=== PATIENT | male | born 1985 | race Caucasian/White ===

== ENCOUNTER 2016-09-11 00:14 | Emergency (ER) | payer SELFPAY ==
--- NOTE | 2016-09-11 05:23 | ED CLINICAL REPORT ---
Clinical Report - Physicians/Mid Levels [facility] [address] [place] [address] 09/11/2016 0:15 Patient: SUNSHINE MCLAUGHLIN Time Seen: 02:52 Sep 11 2016. Arrived- By private vehicle. Historian- patient. CPT: ER phys charges level 4 plus (#[id number]). EKG interpretation (#[id number]). HISTORY OF PRESENT ILLNESS Chief Complaint: HEADACHE, CHEST PAIN, COUGH and ARM PAIN. This started about [address]/MEDICAL INTERPRETER and is still present. At its maximum, severity described as moderate. When seen in the E.D., severity described as mild. Modifying factors- worsened by movement and cough. Relieved by rest. The patient has had fatigue. (Has had a cough for 2 weeks.). Similar symptoms previously: None. Recent medical care: Not recently seen/assessed. REVIEW OF SYSTEMS No fever, sinus drainage, nasal congestion, cough or difficulty breathing. No abdominal pain, nausea, vomiting, diarrhea or black stools. No bloody stools, chills, difficulty with urination, skin rash or back pain. No calf pain. The patient has had chest pain. Has had a lot of reflux for 2 weeks. PAST HISTORY Lumbar Strain. Cervical Radiculopathy. Sprain. Herniated Disk. Diarrhea. Asthma. Bronchospasm. Immunizations. Bronchitis. Additional Surgeries: no known surgeries. Medications: None. Allergies: No Known Drug Allergy. SOCIAL HISTORY Light tobacco smoker (cigarette)- less than 1/2 a pack per day. ADDITIONAL NOTES The nursing notes have been reviewed. PHYSICAL EXAM Vital Signs: 09/11/2016 01:36 BP: 121/62. HR: 71. RR: 16. O2 saturation: 98%. Temp: 97.8 F. Pain level now: 0/10. Appearance: Alert. No acute distress. Eyes: Eyes normal inspection. ENT: Pharynx normal. Neck: Normal inspection. CVS: Normal heart rate and rhythm. Heart sounds normal. Pulses normal. Respiratory: No respiratory distress. Breath sounds normal. (tender over sdoft tissue of the left pectoralis and insertion to the left shoulder. Tender with muscle testing.). Abdomen: No visible injury. Soft. Moderate tenderness in the epigastric area. No mass. Back: Normal inspection. No CVA tenderness. Skin: Skin warm. Normal skin color. Extremities: Extremities exhibit normal ROM. No calf tenderness. No lower extremity edema. Neuro: Oriented X 3. No motor deficit. No sensory deficit. Reflexes normal. LABS, X-RAYS, AND EKG EKG: Normal EKG. Chest X-ray: Normal Chest X-Ray. Laboratory Tests: CBC w Diff: (RIOS: 09/11/2016 03:15) ( [facility] 09/11/2016 03:35) Final results Test Result Flag Units (Reference) WHITE BLOOD COUNT 8.0 K/uL (4.5-11.5) RED BLOOD COUNT 4.65 M/uL (4.50-5.90) HEMOGLOBIN 14.0 gm/dL (13.5-17.5) HEMATOCRIT 40.7 L % (41.0-53.0) MEAN CELL VOLUME 88 fL (80-100) MEAN CORPUSCULAR HGB 30 pg (26-34) MEAN CORPUSCULAR HGB CONC 35 g/dL (31-37) RED CELL DISTRIBUTION WIDTH 12.6 % (11.6-14.8) PLATELET COUNT 215 K/uL (150-400) NEUTROPHIL % 47.0 L % (50-75) LYMPH % 41.4 H % (25-40) MONO % 6.3 % (3-14) EOSINOPHIL % 5.1 H % (0-4) BASOPHIL % 0.2 % (0-2) [id number]: (RIOS: 09/11/2016 03:15) ( [facility] 09/11/2016 03:39) Final results Test Result Flag Units (Reference) D-DIMER QUANTITATIVE < 0.27 L ug/mLFEU (0.27-0.52) The primary value of this quantitative assay relates toits negative predictive value (i.e. exclusion) of pulmonaryembolism/deep vein thrombosis/DIC.Elevated levels of d-dimer may also occur with:, age, cancer, inflammation, liver disease,post-op, infection, hematoma, coronary disease, peripheralarteriopathy, bleeding disorders and thrombolytic treatment.Results should be correlated with other clinical andradiological data.Testing Methodology: Latex Immunoassay CHEM 13 PANEL: (RIOS: 09/11/2016 03:15) ( MsgRcvd 09/11/2016 04:10) Final results Test Result Flag Units (Reference) CPK 143 U/L (24-260) TROPONIN I <0.05 L ng/mL (0.00-1.5) TROPONIN REFERENCE RANGE:<0.1 NEGATIVE0.1-1.5 INDETERMINANT>1.5 POSITIVE GLUCOSE 104 mg/dL (70-110) BUN 17 mg/dL (7-18) CREATININE 0.9 mg/dL (0.6-1.3) Estimated GFR >60 mL/min Estimated GFR- >60 mL/min Note: Persistent reduction over 3 months in eGFR<60 mL/min/1.73 m2 defines CKD. Patients with eGFR values>=60 mL/min/1.73 m2 may also have CKD if evidence ofpersistent proteinuria. Additional information may be foundat www.[email or web address].org. SODIUM 144 mmol/L (136-145) POTASSIUM 3.7 mmol/L (3.5-5.1) CHLORIDE 108 H mmol/L (98-107) CARBON DIOXIDE 25 mmol/L (21-32) CALCIUM 8.5 mg/dL (8.5-10.1) TOTAL PROTEIN 7.4 g/dL (6.4-8.2) ALBUMIN 3.8 g/dL (3.3-5.0) BILIRUBIN, TOTAL 0.2 mg/dL (0.0-1.0) ALKALINE PHOSPHATASE 55 U/L (46-116) AST (SGOT) 31 U/L (15-37) ALT (SGPT) 75.6 U/L (12-78) MAGNESIUM 2.0 mg/dL (1.8-2.4) . PROGRESS AND PROCEDURES Course of Care: White GI cocktail and is much better. Pt has a combination of reflux related pain and chest wall pain. Patient/family counseled. Disposition: Discharged. Condition: stable. CLINICAL IMPRESSION Gastroesophageal reflux disease with esophagitis. Chest wall pain .12 lead EKG performed. INSTRUCTIONS No strenuous activity. Warnings: Further evaluation is necessary. GENERAL WARNINGS: Return or contact your physician immediately if your condition worsens or changes unexpectedly, if not improving as expected, or if other problems arise. Prescription Medications: Hydrocodone/APAP 5mg/325mg: take 1 to 2 orally every 6 hours as needed for pain. Dispense fifteen (15). No refills. Soma 350 mg: Take 1 orally every 6 hours as needed for muscle spasm. Dispense twenty (20). No refills. Substitution is permissible. Carafate 1 gm tablets: take 1 orally four times daily (1 hour before meals and at bedtime). Dispense sixty (60). No refills. Substitution is permissible. Prilosec 40 mg capsules: take 1 capsule orally every day for 10 days. Dispense ten (10). No refill. Follow-up: Follow up with your doctor in one week. Call for an appointment. Understanding of the discharge instructions verbalized by patient and family. (Electronically signed by Abilio Adorno MD 09/18/2016 14:52)
--- NOTE | 2016-09-11 05:23 | ED NURSING NOTES ---
Clinical Report - Nurses [facility] [place] [address] 09/11/2016 0:15 Patient: SUNSHINE MCLAUGHLIN TRIAGE Triage time 01:36. Acuity: LEVEL 3. Chief Complaint: HEADACHE, CHEST PAIN, COUGH and ARM PAIN. --01:39 TonyaB, R.N. 01:36 09/11/16. BP: 121/62. HR: 71. RR: 16. O2 saturation: 98%. Temp: 97.8 F. Pain level now: 0. --01:39 TonyaB, R.N. Weight: 131.5 kg. Height/Length: 69 inches. BMI: 42.8. --01:38 TonyaB, R.N. Medications None. --01:37 TonyaB, R.N. Allergies No Known Drug Allergy. --01:37 TonyaB, R.N. History Arrived by private vehicle. Historian: patient. Accompanied by family. ( pt complains of left arm pain, chest pain and cough for three or four days). Onset. (4 days ago). 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 PAST MEDICAL HX: Immunizations: up-to-date. SOCIAL HX: Current every day light tobacco smoker. No alcohol use or drug use. No infectious disease exposure. SELF HARM ASSESSMENT: A self harm assessment was performed. The patient answered "no" to the question "Have you recently felt down, depressed, or hopeless?", "Have you noticed less interest or pleasure in doing things?", "Do you have thoughts of harming or killing yourself?", "Are you here because you tried to hurt yourself?", "Have you ever tried to hurt yourself before today?", "Have you recently had thoughts about harming or killing others?" and "Do you have any dangerous items in your possession?". FALL RISK ASSESSMENT: Fall risk assessment completed. No fall risk identified. NUTRITIONAL RISK ASSESSMENT: The nutritional risk assessment revealed no deficiencies. FUNCTIONAL ASSESSMENT: Functional assessment: no impairments noted. LEARNING NEEDS ASSESSMENT: The learning needs assessment revealed no barriers. ABUSE ASSESSMENT: Abuse assessment: The patient was asked "Do you feel safe in your home?". SKIN INTEGRITY ASSESSMENT: Skin integrity risk assessment completed. No skin integrity risk identified. --01:39 Mary Walter. PROBLEMS: Lumbar Strain. Cervical Radiculopathy. Sprain. Herniated Disk. Diarrhea. Asthma. Bronchospasm. Immunizations. Bronchitis. --01:38 Walker WalterN. ADDITIONAL SURGERIES: no known surgeries. Interventions ID band on patient. To room. --01:39 Mary Walter. PHYSICAL ASSESSMENT Ambulatory to room. GENERAL / NEURO / PSYCH: Alert. Oriented X 4. Appears in no acute distress. HEENT: Pupils equal, round and reactive to light. No facial asymmetry noted. Mucous membranes are pink. RESPIRATORY: Respirations not labored. Cough. Chest wall tenderness. Breath sounds within normal limits. CVS: Normal sinus rhythm noted. Capillary refill less than 2 seconds. Pulses within normal limits. GI / : Abdomen soft and nontender and normal bowel sounds. SKIN: Skin intact. Skin is warm and dry. Normal skin turgor. --01:40 Mary Walter. NURSING PROGRESS NOTES environmental monitoring technician, pulse oximeter and NIBP monitor placed on patient. Patient gowned. Patient identifiers checked. Call light placed in reach. Side rails up x 1. Bed placed in lowest position. Brakes of bed on. --01:40 Josie Walter EKG time: (03:Sep 11 2016). EKG was performed by a bharat and shown to the ED physician. --03:25 Angel Albarran 04:27 09/11/2016 GI COCKTAIL WHITE (Simethicone) PO 50 mL given. Allergies verified and confirmed 5 rights. --04:27 Mary Walter. The patient is sleeping. --04:33 Josie Walter DISPOSITION / DISCHARGE Departure time: 05:29. Condition at departure: improved. No learning barriers present. Discharge instructions provided and reviewed with the patient. Reviewed medication(s) side effects, precautions, dosing and course information. Prescription(s) given to the patient. Activity restrictions reviewed (no strenous activity). Patient verbalized understanding. Written instructions provided in Nigerian. No warning instructions, treatment instructions, referrals given to the patient, diet instructions or note given. No follow up contact number given or stop smoking instructions. The patient was discharged by the physician. He was discharged home and accompanied by spouse. He left the Emergency Department ambulatory and via private vehicle. Spouse driving. FALL RISK ASSESSMENT: Fall risk assessment completed. No fall risk identified. --05:29 Josie Walter 05:27 09/11/16. BP: 139/84. HR: 78. RR: 16. O2 saturation: 99%. Temp: 98.3 F. Pain level now: 0/10. --05:29 Josie Walter Locked/Released at 09/11/2016 5:29 by Josie Walter
--- NOTE | 2016-09-11 05:23 | ED NURSING NOTES ---
Clinical Report - Nurses [facility] [place] [address] 09/11/2016 0:15 Patient: SUNSHINE MCLAUGHLIN TRIAGE Triage time 01:36. Acuity: LEVEL 3. Chief Complaint: HEADACHE, CHEST PAIN, COUGH and ARM PAIN. --01:39 TonyaB, R.N. 01:36 09/11/16. BP: 121/62. HR: 71. RR: 16. O2 saturation: 98%. Temp: 97.8 F. Pain level now: 0. --01:39 TonyaB, R.N. Weight: 131.5 kg. Height/Length: 69 inches. BMI: 42.8. --01:38 TonyaB, R.N. Medications None. --01:37 TonyaB, R.N. Allergies No Known Drug Allergy. --01:37 TonyaB, R.N. History Arrived by private vehicle. Historian: patient. Accompanied by family. ( pt complains of left arm pain, chest pain and cough for three or four days). Onset. (4 days ago). 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 PAST MEDICAL HX: Immunizations: up-to-date. SOCIAL HX: Current every day light tobacco smoker. No alcohol use or drug use. No infectious disease exposure. SELF HARM ASSESSMENT: A self harm assessment was performed. The patient answered "no" to the question "Have you recently felt down, depressed, or hopeless?", "Have you noticed less interest or pleasure in doing things?", "Do you have thoughts of harming or killing yourself?", "Are you here because you tried to hurt yourself?", "Have you ever tried to hurt yourself before today?", "Have you recently had thoughts about harming or killing others?" and "Do you have any dangerous items in your possession?". FALL RISK ASSESSMENT: Fall risk assessment completed. No fall risk identified. NUTRITIONAL RISK ASSESSMENT: The nutritional risk assessment revealed no deficiencies. FUNCTIONAL ASSESSMENT: Functional assessment: no impairments noted. LEARNING NEEDS ASSESSMENT: The learning needs assessment revealed no barriers. ABUSE ASSESSMENT: Abuse assessment: The patient was asked "Do you feel safe in your home?". SKIN INTEGRITY ASSESSMENT: Skin integrity risk assessment completed. No skin integrity risk identified. --01:39 Mary Walter. PROBLEMS: Lumbar Strain. Cervical Radiculopathy. Sprain. Herniated Disk. Diarrhea. Asthma. Bronchospasm. Immunizations. Bronchitis. --01:38 Walker WalterN. ADDITIONAL SURGERIES: no known surgeries. Interventions ID band on patient. To room. --01:39 Mary Walter. PHYSICAL ASSESSMENT Ambulatory to room. GENERAL / NEURO / PSYCH: Alert. Oriented X 4. Appears in no acute distress. HEENT: Pupils equal, round and reactive to light. No facial asymmetry noted. Mucous membranes are pink. RESPIRATORY: Respirations not labored. Cough. Chest wall tenderness. Breath sounds within normal limits. CVS: Normal sinus rhythm noted. Capillary refill less than 2 seconds. Pulses within normal limits. GI / : Abdomen soft and nontender and normal bowel sounds. SKIN: Skin intact. Skin is warm and dry. Normal skin turgor. --01:40 Mary Walter. NURSING PROGRESS NOTES residential monitor, pulse oximeter and NIBP monitor placed on patient. Patient gowned. Patient identifiers checked. Call light placed in reach. Side rails up x 1. Bed placed in lowest position. Brakes of bed on. --01:40 Josie Walter EKG time: (03:Sep 11 2016). EKG was performed by a bharat and shown to the ED physician. --03:25 Angel Albarran 04:27 09/11/2016 GI COCKTAIL WHITE (Simethicone) PO 50 mL given. Allergies verified and confirmed 5 rights. --04:27 Mary Walter. The patient is sleeping. --04:33 Josie Walter DISPOSITION / DISCHARGE Departure time: 05:29. Condition at departure: improved. No learning barriers present. Discharge instructions provided and reviewed with the patient. Reviewed medication(s) side effects, precautions, dosing and course information. Prescription(s) given to the patient. Activity restrictions reviewed (no strenous activity). Patient verbalized understanding. Written instructions provided in Cambodian. No warning instructions, treatment instructions, referrals given to the patient, diet instructions or note given. No follow up contact number given or stop smoking instructions. The patient was discharged by the physician. He was discharged home and accompanied by spouse. He left the Emergency Department ambulatory and via private vehicle. Spouse driving. FALL RISK ASSESSMENT: Fall risk assessment completed. No fall risk identified. --05:29 Josie Walter 05:27 09/11/16. BP: 139/84. HR: 78. RR: 16. O2 saturation: 99%. Temp: 98.3 F. Pain level now: 0/10. --05:29 Josie Walter Locked/Released at 09/11/2016 5:29 by Josie Walter
--- NOTE | 2016-09-11 05:23 | ED ORDER SUMMARY ---
..... Patient: SUNSHINE MCLAUGHLIN OrderSheet [facility] VisitID: [id number] [address] [place] [address] 31y, M Registration Date/Time: 09/11/2016 ORDER SHEET Weight: 131.5 kg Allergies: No Known Drug Allergy GENERAL ORDERS: Chest 2V Urgent (03:00 09/11/2016 Laurel FRYE) (Ack 3:02 SRedmond) (3:10 GUnger) Cardiac Panel Stat (03:00 09/11/2016 Laurel FRYE) (Ack 3:02 SRedmond) D-Dimer Urgent (03:00 09/11/2016 Laurel FRYE) (Ack 3:02 SRedmond) EKG - ER Stat (03:00 09/11/2016 Laurel FRYE) (Ack 3:02 SRedmond) (3:24 SRedmond) MEDICATION ORDERS: GI Cocktail WHITE PO 50 mL (NOW) (04:22 09/11/2016 Laurel FRYE) (4:27 Dora R.NAlecia) IV FLUIDS: ORDER SHEET NOTES: [Electronically signed by Priya Martínez R.N. (05:29 09/11/2016)] [Electronically signed by Abilio Adorno MD (14:52 09/18/2016)] [Electronically locked/signed by Priya Martínez R.N. (05:29 09/11/2016)]
--- NOTE | 2016-09-11 05:23 | ED CLINICAL REPORT ---
Clinical Report - Physicians/Mid Levels [facility] [address] [place] [address] 09/11/2016 0:15 Patient: SUNSHINE MCLAUGHLIN Time Seen: 02:52 Sep 11 2016. Arrived- By private vehicle. Historian- patient. CPT: ER phys charges level 4 plus (#[id number]). EKG interpretation (#[id number]). HISTORY OF PRESENT ILLNESS Chief Complaint: HEADACHE, CHEST PAIN, COUGH and ARM PAIN. 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 At its maximum, severity described as moderate. When seen in the E.D., severity described as mild. Modifying factors- worsened by movement and cough. Relieved by rest. The patient has had fatigue. (Has had a cough for 2 weeks.). Similar symptoms previously: None. Recent medical care: Not recently seen/assessed. REVIEW OF SYSTEMS No fever, sinus drainage, nasal congestion, cough or difficulty breathing. No abdominal pain, nausea, vomiting, diarrhea or black stools. No bloody stools, chills, difficulty with urination, skin rash or back pain. No calf pain. The patient has had chest pain. Has had a lot of reflux for 2 weeks. PAST HISTORY Lumbar Strain. Cervical Radiculopathy. Sprain. Herniated Disk. Diarrhea. Asthma. Bronchospasm. Immunizations. Bronchitis. Additional Surgeries: no known surgeries. Medications: None. Allergies: No Known Drug Allergy. SOCIAL HISTORY Light tobacco smoker (cigarette)- less than 1/2 a pack per day. ADDITIONAL NOTES The nursing notes have been reviewed. PHYSICAL EXAM Vital Signs: 09/11/2016 01:36 BP: 121/62. HR: 71. RR: 16. O2 saturation: 98%. Temp: 97.8 F. Pain level now: 0/10. Appearance: Alert. No acute distress. Eyes: Eyes normal inspection. ENT: Pharynx normal. Neck: Normal inspection. CVS: Normal heart rate and rhythm. Heart sounds normal. Pulses normal. Respiratory: No respiratory distress. Breath sounds normal. (tender over sdoft tissue of the left pectoralis and insertion to the left shoulder. Tender with muscle testing.). Abdomen: No visible injury. Soft. Moderate tenderness in the epigastric area. No mass. Back: Normal inspection. No CVA tenderness. Skin: Skin warm. Normal skin color. Extremities: Extremities exhibit normal ROM. No calf tenderness. No lower extremity edema. Neuro: Oriented X 3. No motor deficit. No sensory deficit. Reflexes normal. LABS, X-RAYS, AND EKG EKG: Normal EKG. Chest X-ray: Normal Chest X-Ray. Laboratory Tests: CBC w Diff: (RIOS: 09/11/2016 03:15) ( [facility] 09/11/2016 03:35) Final results Test Result Flag Units (Reference) WHITE BLOOD COUNT 8.0 K/uL (4.5-11.5) RED BLOOD COUNT 4.65 M/uL (4.50-5.90) HEMOGLOBIN 14.0 gm/dL (13.5-17.5) HEMATOCRIT 40.7 L % (41.0-53.0) MEAN CELL VOLUME 88 fL (80-100) MEAN CORPUSCULAR HGB 30 pg (26-34) MEAN CORPUSCULAR HGB CONC 35 g/dL (31-37) RED CELL DISTRIBUTION WIDTH 12.6 % (11.6-14.8) PLATELET COUNT 215 K/uL (150-400) NEUTROPHIL % 47.0 L % (50-75) LYMPH % 41.4 H % (25-40) MONO % 6.3 % (3-14) EOSINOPHIL % 5.1 H % (0-4) BASOPHIL % 0.2 % (0-2) [id number]: (RIOS: 09/11/2016 03:15) ( [facility] 09/11/2016 03:39) Final results Test Result Flag Units (Reference) D-DIMER QUANTITATIVE < 0.27 L ug/mLFEU (0.27-0.52) The primary value of this quantitative assay relates toits negative predictive value (i.e. exclusion) of pulmonaryembolism/deep vein thrombosis/DIC.Elevated levels of d-dimer may also occur with:, age, cancer, inflammation, liver disease,post-op, infection, hematoma, coronary disease, peripheralarteriopathy, bleeding disorders and thrombolytic treatment.Results should be correlated with other clinical andradiological data.Testing Methodology: Latex Immunoassay CHEM 13 PANEL: (RIOS: 09/11/2016 03:15) ( MsgRcvd 09/11/2016 04:10) Final results Test Result Flag Units (Reference) CPK 143 U/L (24-260) TROPONIN I <0.05 L ng/mL (0.00-1.5) TROPONIN REFERENCE RANGE:<0.1 NEGATIVE0.1-1.5 INDETERMINANT>1.5 POSITIVE GLUCOSE 104 mg/dL (70-110) BUN 17 mg/dL (7-18) CREATININE 0.9 mg/dL (0.6-1.3) Estimated GFR >60 mL/min Estimated GFR- >60 mL/min Note: Persistent reduction over 3 months in eGFR<60 mL/min/1.73 m2 defines CKD. Patients with eGFR values>=60 mL/min/1.73 m2 may also have CKD if evidence ofpersistent proteinuria. Additional information may be foundat www.kidney.org. SODIUM 144 mmol/L (136-145) POTASSIUM 3.7 mmol/L (3.5-5.1) CHLORIDE 108 H mmol/L (98-107) CARBON DIOXIDE 25 mmol/L (21-32) CALCIUM 8.5 mg/dL (8.5-10.1) TOTAL PROTEIN 7.4 g/dL (6.4-8.2) ALBUMIN 3.8 g/dL (3.3-5.0) BILIRUBIN, TOTAL 0.2 mg/dL (0.0-1.0) ALKALINE PHOSPHATASE 55 U/L (46-116) AST (SGOT) 31 U/L (15-37) ALT (SGPT) 75.6 U/L (12-78) MAGNESIUM 2.0 mg/dL (1.8-2.4) . PROGRESS AND PROCEDURES Course of Care: White GI cocktail and is much better. Pt has a combination of reflux related pain and chest wall pain. Patient/family counseled. Disposition: Discharged. Condition: stable. CLINICAL IMPRESSION Gastroesophageal reflux disease with esophagitis. Chest wall pain .12 lead EKG performed. INSTRUCTIONS No strenuous activity. Warnings: Further evaluation is necessary. GENERAL WARNINGS: Return or contact your physician immediately if your condition worsens or changes unexpectedly, if not improving as expected, or if other problems arise. Prescription Medications: Hydrocodone/APAP 5mg/325mg: take 1 to 2 orally every 6 hours as needed for pain. Dispense fifteen (15). No refills. Soma 350 mg: Take 1 orally every 6 hours as needed for muscle spasm. Dispense twenty (20). No refills. Substitution is permissible. Carafate 1 gm tablets: take 1 orally four times daily (1 hour before meals and at bedtime). Dispense sixty (60). No refills. Substitution is permissible. Prilosec 40 mg capsules: take 1 capsule orally every day for 10 days. Dispense ten (10). No refill. Follow-up: Follow up with your doctor in one week. Call for an appointment. Understanding of the discharge instructions verbalized by patient and family. (Electronically signed by Abilio Adorno MD 09/18/2016 14:52)
--- NOTE | 2016-09-11 05:23 | ED ORDER SUMMARY ---
..... Patient: SUNSHINE MCLAUGHLIN OrderSheet [facility] VisitID: [id number] [address] [place] [address] 31y, M Registration Date/Time: 09/11/2016 ORDER SHEET Weight: 131.5 kg Allergies: No Known Drug Allergy GENERAL ORDERS: Chest 2V Urgent (03:00 09/11/2016 Laurel FRYE) (Ack 3:02 SRedmond) (3:10 GUnger) Cardiac Panel Stat (03:00 09/11/2016 [place] FRYE) (Ack 3:02 SRedmond) D-Dimer Urgent (03:00 09/11/2016 [place] FRYE) (Ack 3:02 SRedmond) EKG - ER Stat (03:00 09/11/2016 La[place] FRYE) (Ack 3:02 SRedmond) (3:24 SRedmond) MEDICATION ORDERS: GI Cocktail WHITE PO 50 mL (NOW) (04:22 09/11/2016 Laurel FRYE) (4:27 Dora R.NAlecia) IV FLUIDS: ORDER SHEET NOTES: [Electronically signed by Priya Martínez R.N. (05:29 09/11/2016)] [Electronically signed by Abilio Adorno MD (14:52 09/18/2016)] [Electronically locked/signed by Priya Martínez R.N. (05:29 09/11/2016)]
--- NOTE | 2016-09-11 05:31 | DIAGNOSTIC IMAGING REPORT ---
PROCEDURE: XR CHEST 2 VIEW INDICATION: CHEST PAIN TECHNIQUE: PA and lateral view. COMPARISON: None. FINDINGS: Lungs are clear. Cardiovascular structures are normal. Bony thorax is unremarkable. IMPRESSION: 1. Negative chest.
--- NOTE | 2016-09-18 14:52 | ED MAR SUMMARY ---
..... Medication Administration Record [facility] [address] [place] [address] Patient: SUNSHINE MCLUAGHLIN Visit ID: [id number] 31y, M Weight: 131.5 kg Height/Length: 69 in BMI: 42.8 ALLERGIES: No Known Drug Allergy Given 04:27 09/11/2016 Josie Walter Medication Administered: GI COCKTAIL WHITE [PO] (SIMETHICONE), Dose: 50 mL PO. Medication Ordered: GI Cocktail WHITE PO 50 mL (NOW).
--- NOTE | 2016-09-18 14:52 | ED MED RECONCILIATION SUMMARY ---
Patient: SUNSHINE MCLAUGHLIN Medication Reconciliation Report [facility] VisitID: [id number] [address] [place] [address] 31y, M Registration Date/Time: 09/11/2016 Weight: 131.5 kg Height/Length: 69 in. BMI: 42.8 ALLERGIES: No Known Drug Allergy The patient's Home Medications are listed below: NONE. The source(s) of the original Home Medication information: Not obtained. The following Medications were given to the patient in the Emergency Department: GI COCKTAIL WHITE [PO] PO 50 mL, administered: 09/11/2016 4:27:00 AM The following Medications were prescribed to the patient: Hydrocodone/APAP 5mg/325mg: take 1 to 2 orally every 6 hours as needed for pain. Dispense fifteen (15). No refills. -- Abilio Adorno MD Soma 350 mg: Take 1 orally every 6 hours as needed for muscle spasm. Dispense twenty (20). No refills. Substitution is permissible. -- Abilio Adorno MD Carafate 1 gm tablets: take 1 orally four times daily (1 hour before meals and at bedtime). Dispense sixty (60). No refills. Substitution is permissible. -- Abilio Adorno MD Prilosec 40 mg capsules: take 1 capsule orally every day for 10 days. Dispense ten (10). No refill. -- Abilio Adorno MD
--- NOTE | 2016-09-18 14:52 | ED MAR SUMMARY ---
..... Medication Administration Record [facility] [address] [place] [address] Patient: SUNSHINE MCLAUGHLIN Visit ID: [id number] 31y, M Weight: 131.5 kg Height/Length: 69 in BMI: 42.8 ALLERGIES: No Known Drug Allergy Given 04:27 09/11/2016 Josie Walter Medication Administered: GI COCKTAIL WHITE [PO] (SIMETHICONE), Dose: 50 mL PO. Medication Ordered: GI Cocktail WHITE PO 50 mL (NOW).
--- NOTE | 2016-09-18 14:52 | ED MED RECONCILIATION SUMMARY ---
Patient: SUNSHINE MCLAUGHLIN Medication Reconciliation Report [facility] VisitID: [id number] [address] [place] [address] 31y, M Registration Date/Time: 09/11/2016 Weight: 131.5 kg Height/Length: 69 in. BMI: 42.8 ALLERGIES: No Known Drug Allergy The patient's Home Medications are listed below: NONE. The source(s) of the original Home Medication information: Not obtained. The following Medications were given to the patient in the Emergency Department: GI COCKTAIL WHITE [PO] PO 50 mL, administered: 09/11/2016 4:27:00 AM The following Medications were prescribed to the patient: Hydrocodone/APAP 5mg/325mg: take 1 to 2 orally every 6 hours as needed for pain. Dispense fifteen (15). No refills. -- Abilio Adorno MD Soma 350 mg: Take 1 orally every 6 hours as needed for muscle spasm. Dispense twenty (20). No refills. Substitution is permissible. -- Abilio Adorno MD Carafate 1 gm tablets: take 1 orally four times daily (1 hour before meals and at bedtime). Dispense sixty (60). No refills. Substitution is permissible. -- Abilio Adorno MD Prilosec 40 mg capsules: take 1 capsule orally every day for 10 days. Dispense ten (10). No refill. -- Abilio Adorno MD
--- NOTE | 2016-09-18 14:52 | ED DISCHARGE INSTRUCTIONS ---
Patient: SUNSHINE MCLAUGHLIN General Instructions [facility] VisitID: [id number] [address] [place] [address] 31y, M Registration Date/Time: 09/11/2016 Gastroesophageal reflux disease with esophagitis. Chest wall pain .12 lead EKG performed. INSTRUCTIONS No strenuous activity. Warnings: Further evaluation is necessary. GENERAL WARNINGS: Return or contact your physician immediately if your condition worsens or changes unexpectedly, if not improving as expected, or if other problems arise. Prescription Medications: Hydrocodone/APAP 5mg/325mg: take 1 to 2 orally every 6 hours as needed for pain. Dispense fifteen (15). No refills. Soma 350 mg: Take 1 orally every 6 hours as needed for muscle spasm. Dispense twenty (20). No refills. Substitution is permissible. Carafate 1 gm tablets: take 1 orally four times daily (1 hour before meals and at bedtime). Dispense sixty (60). No refills. Substitution is permissible. Prilosec 40 mg capsules: take 1 capsule orally every day for 10 days. Dispense ten (10). No refill. Follow-up: Follow up with your doctor in one week. Call for an appointment. Understanding of the discharge instructions verbalized by patient and family. ADDITIONAL INFORMATION Chest Strain A strain of the chest is due to stretching and tearing of the muscle fibers between the ribs. This may occur as a result of severe coughing, strenuous lifting or twisting injuries of the upper back. This usually causes increased pain with movement or deep breathing. This may take a few days to a few weeks to heal. Home Care: Rest. Avoid heavy lifting or strenuous exertion. Avoid any activity that causes pain. If you have a severe cough, use a cough syrup such as Robitussin DM (containing dextromethorphan) unless another cough medicine was prescribed. You may use acetaminophen (Tylenol) or ibuprofen (Motrin, Advil) to control pain, unless another medicine was prescribed. [ NOTE: If you have chronic liver or kidney disease or ever had a stomach ulcer or GI bleeding, talk with your doctor before using these medicines.] Follow Up with your doctor as directed. Get Prompt Medical Attention if any of the following occur: A change in the type of pain: if it feels different, becomes more severe, lasts longer, or begins to spread into your shoulder, arm, neck, jaw or back Shortness of breath or increased pain with breathing Cough with dark colored sputum (phlegm) or blood Weakness, dizziness, or fainting Fever of 100.4F (38C) or higher, or as directed by your healthcare provider GERD (Adult) The esophagus is a tube that carries food from the mouth to the stomach. A valve at the lower end of the esophagus prevents stomach acid from flowing upward. If this valve does not work properly, acid from the stomach enters the esophagus. If this occurs over and over, the acid will injure the lining of the esophagus. This condition is called GERD (gastroesophageal reflux disease) or acid reflux. When stomach acid flows upward into the esophagus, it causes burning, pressure or sharp pain in the upper abdomen or mid to lower chest. The pain can spread to the neck, back, or shoulder, similar to heart pain (angina). There may be belching, an acid taste in the back of the throat, chronic cough, or sore throat or hoarseness. GERD symptoms often occur during the day after a big meal, but it can also occur at night when lying down. Smoking,as well as drinking alcohol, increases the risk of GERD. GERD is a chronic condition. Once it begins, it is often lifelong. Treatment includes changes in eating habits and the use of acid bonnie medications to decrease the amount of acid in the stomach. Symptoms often improve with treatment, but if treatment is stopped, the symptoms usually return after a few months. So most persons with GERD will need to continue treatment. Home Care: Take the prescribed acid bonnie medication for the full course of treatment even if you begin to feel better sooner. This medication can take up to several days to fully control your symptoms. If you cant afford the prescribed medication, you can try eytn-dxw-llyiwgh acid blockers, such as Pepcid AC, Tagamet, Zantac, or Aciphex. If these do not relieve your symptoms, a stronger acid-bonnie can be tried, such as Prilosec OTC. You can use antacids, such as Tums, Rolaids, Mylanta, or Maalox, for pain. This will be useful the first few days after starting acid blockers when the blockers havent started working yet. Follow the directions on the label. Liquid antacids may work better than tablets. Note that antacids can interfere with absorption of certain medications. Specifically, do not take Tagamet (cimetidine), Zantac (ranitidine), or Carafate (sucralfate) within 1 hour of taking an antacid. Talk with your pharmacist if you have any questions. Limit or avoid fatty, fried, and spicy foods, as well as coffee, chocolate, mint, and foods with high acid content such as tomatoes and citrus fruit and juices (orange, grapefruit, lemon). Avoid alcohol and smoking. Dont eat large meals, especially at night. Frequent, smaller meals are best. Do not lie down right after eating. And dont eat anything 3 hours before going to bed. If you are overweight, losing weight will reduce symptoms. Women should not wear corsets or girdles because this increases pressure on the stomach and worsens reflux. If your symptoms occur during sleep, use a foam wedge to elevate your upper body (not just your head.) Or, place 4" blocks under the head of your bed. Follow Up with your doctor or as advised by our staff. Further testing may be needed. If you do not begin to improve over the next 4 days, contact your doctor. If you had an x-ray, CT scan, or ECG (electrocardiogram), it will be reviewed by a specialist. Youll be notified of any new findings that affect your care. Get Prompt Medical Attention if any of the following occur: Stomach pain gets worse or moves to the lower right abdomen (appendix area) Chest pain appears or gets worse, or spreads to the back, neck, shoulder, or arm Frequent vomiting (cant keep down liquids) Blood in the stool or vomit (red or black in color) Feeling weak or dizzy, fainting, or trouble breathing Fever of 100.4F (38C) or higher, or as directed by your healthcare provider Omeprazole Magnesium Gastro-resistant tablet What is this medicine? OMEPRAZOLE (oh ME pray zol) prevents the production of acid in the stomach. It is used to treat the symptoms of heartburn. You can buy this medicine without a prescription. This product is not for long-term use, unless otherwise directed by your doctor or health primary care coordinator. How should I use this medicine? Take this medicine by mouth. Follow the directions on the product label. If you are taking this medicine without a prescription, take one tablet every day. Do not use for longer than 14 days or repeat a course of treatment more often than every 4 months unless directed by a doctor or healthcare professional. Take your dose at regular intervals every 24 hours. Swallow the tablet whole with a drink of water. Do not crush, break or chew. This medicine works best if taken on an empty stomach 30 minutes before breakfast. If you are using this medicine with the prescription of your doctor or healthcare professional, follow the directions you were given. Do not take your medicine more often than directed. Talk to your inside sales administrator regarding the use of this medicine in children. Special care may be needed. What side effects may I notice from receiving this medicine? Side effects that you should report to your doctor or health primary care coordinator as soon as possible: allergic reactions like skin rash, itching or hives, swelling of the face, lips, or tongue bone, muscle or joint pain breathing problems chest pain or chest tightness dark yellow or brown urine diarrhea dizziness fast, irregular heartbeat feeling faint or lightheaded fever or sore throat muscle spasm palpitations redness, blistering, peeling or loosening of the skin, including inside the mouth seizures tremors unusual bleeding or bruising unusually weak or tired yellowing of the eyes or skin Side effects that usually do not require medical attention (Report these to your doctor or health primary care coordinator if they continue or are bothersome.): constipation dry mouth headache loose stools nausea What may interact with this medicine? Do not take this medicine with any of the following medications: atazanavir clopidogrel nelfinavir This medicine may also interact with the following medications: ampicillin certain medicines for anxiety or sleep certain medicines that treat or prevent blood clots like warfarin cyclosporine diazepam digoxin disulfiram iron salts phenytoin prescription medicine for fungal or yeast infection like itraconazole, ketoconazole, voriconazole saquinavir tacrolimus What if I miss a dose? If you miss a dose, take it as soon as you can. If it is almost time for your next dose, take only that dose. Do not take double or extra doses. Where should I keep my medicine? Keep out of the reach of children. Store at room temperature between 20 and 25 degrees C (68 and 77 degrees F). Protect from light and moisture. Throw away any unused medicine after the expiration date. What should I tell my health care provider before I take this medicine? They need to know if you have any of these conditions: black or bloody stools chest pain difficulty swallowing have had heartburn for over 3 months have heartburn with dizziness, lightheadedness or sweating liver disease stomach pain unexplained weight loss vomiting with blood wheezing an unusual or allergic reaction to omeprazole, other medicines, foods, dyes, or preservatives or trying to get breast-feeding What should I watch for while using this medicine? It can take several days before your heartburn gets better. Check with your doctor or health primary care coordinator if your condition does not start to get better, or if it gets worse. Do not treat diarrhea with over the counter products. Contact your doctor if you have diarrhea that lasts more than 2 days or if it is severe and watery. Do not treat yourself for heartburn with this medicine for more than 14 days in a row. You should only use this medicine for a 2-week treatment period once every 4 months. If your symptoms return shortly after your therapy is complete, or within the 4 month time frame, call your doctor or health primary care coordinator. You have been given the following additional information: Chest Wall Strain GERD (Adult) Omeprazole Magnesium Gastro-resistant tablet No strenuous activity. (Electronically signed by Abilio Adorno MD 09/18/2016 14:52)
== END 2016-09-11 05:20 | disposition home or self-care (01) ==
LOC: ED SRH 00:14
DX: K21.0 Gastro-esophageal reflux disease with esophagitis (principal); R07.89 Other chest pain; F17.210 Nicotine dependence, cigarettes, uncomplicated
CPT/HCPCS: 90074; 90100; 90616; 91556; 92610; 92720; 95059